=== PATIENT | male | born 1990 | race American Indian/Alaskan Native ===

== ENCOUNTER 2019-06-06 23:08 | Emergency (ER) | payer SELFPAY ==
[2019-06-07 00:28] LABS: Basophils % (Auto) 0.6 % (0.0-1.8); Eosinophils # (Auto) 0.1 K/mm3 (0.0-0.4); Eosinophils % (Auto) 1.1 % (0.0-4.3); Hematocrit 47.4 % (35.5-45.6); Hemoglobin 15.4 gm/dl (11.8-15.2); Lymphocytes # (Auto) 2.6 K/mm3 (1.2-5.4); Lymphocytes % (Auto) 40.2 % (13.4-35.0); Mean Corpuscular HGB Conc 33 % (32-34); Mean Corpuscular Volume 83 fl (84-94); Monocytes # (Auto) 0.5 K/mm3 (0.0-0.8); Monocytes % (Auto) 7.7 % (0.0-7.3); Platelet Count 204 K/mm3 (140-440); Red Blood Count 5.71 M/mm3 (3.65-5.03); Red Cell Distribution Width 13.5 % (13.2-15.2)
[2019-06-07 00:44] LABS: Alanine Aminotransferase 19 units/L (7-56); Albumin 4.7 g/dL (3.9-5); BUN/Creatinine Ratio 13; Blood Urea Nitrogen 13 mg/dL (9-20); Calcium 9.7 mg/dL (8.4-10.2); Hemolysis Index 31
[2019-06-07 01:33] LABS: Bacteria,Urine 1+ /HPF (Negative); Bilirubin,Urine NEG (Negative); Blood,Urine SM (Negative); Color,Urine Yellow (Yellow); Mucus,Urine FEW /HPF; Protein,Urine <15 mg/dL mg/dL (Negative); Urobilinogen,Urine < 2.0 mg/dL (<2.0)
--- NOTE | 2019-06-07 02:40 | Emergency Department Report ---
HPI - General Chief Complaint: GI Bleed Time Seen by Provider: 06/07/19 02:16 - HPI HPI: Room 24 The patient is 28-year-old male presenting with chief complaint of hematemesis. The patient states for the past 2 weeks is noticing elevated blood pressure has had intermittent lightheadedness as well as a right-sided headache. The patient states this evening and drank some apple cider vinegar and then developed nausea vomiting with hematemesis. He states his last bowel movement occurred this evening and was pink in color. Location: [See above] Duration: [See above] Quality: [See above] Severity: [See above] Timing: [See above] Context: [See above] Modifying factors: [See above] Associated signs and symptoms: [see above] ED Past Medical Hx - Past Medical History Previous Medical History?: No - Surgical History Past Surgical History?: No - Family History Family history: no significant - Social History Smoking Status: Current Every Day Smoker (1 pack per day) Substance Use Type: Alcohol (), Marijuana - Medications Home Medications: Home Medications Medication Instructions Recorded Confirmed Last Taken Type Butalb/Acetamin/Caff 50-325-40 2 tab PO Q8HR PRN #10 tablet 06/07/19 Unknown Rx [Fioricet 50-325-40] Famotidine [Pepcid] 20 mg PO BID #30 tablet 06/07/19 Unknown Rx ED Review of Systems ROS: Stated complaint: ABD PAIN/VOMITING BLOOD Other details as noted in HPI Constitutional: no symptoms reported Eyes: denies: eye pain ENT: denies: throat pain Respiratory: no symptoms reported Cardiovascular: denies: chest pain Endocrine: no symptoms reported Gastrointestinal: abdominal pain, nausea, vomiting, hematemesis. denies: melena Genitourinary: denies: dysuria Musculoskeletal: denies: back pain Neurological: headache Physical Exam - Physical Exam Vital Signs: Vital Signs 06/06/19 23:18 Temperature 98.2 F Pulse Rate 84 Respiratory 20 Rate Blood Pressure 137/77 [Right] O2 Sat by Pulse 98 Oximetry Physical Exam: GENERAL: The patient is well-developed well-nourished []. [] HEENT: Normocephalic. Atraumatic. Extraocular motions are intact. Patient has moist mucous membranes. NECK: Supple. Taking midline CHEST/LUNGS: Clear to auscultation. There is no respiratory distress noted. HEART/CARDIOVASCULAR: Regular. There is no tachycardia. There is no gallop rub or murmur. ABDOMEN: Abdomen is soft, with mild discomfort to palpation in the right upper quadrant. Patient has normal bowel sounds. There is no abdominal distention. SKIN: There is no rash. There is no edema. There is no diaphoresis. NEURO: The patient is awake, alert, and oriented. The patient is cooperative. The patient has no focal neurologic deficits. The patient has normal speech. Cranial nerves II through XII grossly intact, no drift MUSCULOSKELETAL: There is no evidence of acute injury. RECTAL: Guaiac negative ED Course Vital Signs 06/06/19 23:18 Temperature 98.2 F Pulse Rate 84 Respiratory 20 Rate Blood Pressure 137/77 [Right] O2 Sat by Pulse 98 Oximetry ED Medical Decision Making - Lab Data Result diagrams: 06/06/19 23:35 06/06/19 23:35 - Radiology Data Radiology results: report reviewed (CT head, CT abdomen and pelvis), image reviewed (CT head, CT abdomen and pelvis) [address] [address] Cat Scan Report Signed Patient: AURORA NAJERA MR#: [id number] : 1990 Acct:[id number] Age/Sex: 28 / M ADM Date: 06/06/19 Loc: ED Attending Dr: Ordering Physician: JOSE DAI MD Date of Service: 06/07/19 Procedure(s): CT head/brain wo con Accession Number(s): [id number] cc: JOSE DAI MD CT HEAD WITHOUT CONTRAST INDICATION: right-sided headache. TECHNIQUE: All CT scans at this location are performed using CT dose reduction for ALARA by means of automated exposure control. COMPARISON: None available. FINDINGS: HEMORRHAGE: None. EXTRA-AXIAL SPACES: Normal in size and morphology for the patient's age. VENTRICULAR SYSTEM: Normal in size and morphology for the patient's age. BRAIN PARENCHYMA: No acute findings. MIDLINE SHIFT OR HERNIATION: None. ORBITS: Normal as visualized. SOFT TISSUES OF HEAD: Normal. CALVARIUM: Normal. VISUALIZED PARANASAL SINUSES AND MASTOID AIR CELLS: Clear. ADDITIONAL FINDINGS: None. IMPRESSION: 1. No acute intracranial abnormality. Signer Name: Franko Smyth MD Signed: 06/07/2019 3:19 AM Workstation Name: [id number] Transcribed By: HELDER Dictated By: Franko Smyth MD Electronically Authenticated By: Franko Smyth MD Signed Date/Time: 06/07/19318 DD/ 6 TD/TT: [facility] [address] [place] [address] Cat Scan Report Signed Patient: AURORA NAJERA MR#: [id number] : 1990 Acct:[id number] Age/Sex: 28 / M ADM Date: 06/06/19 Loc: ED Attending Dr: Ordering Physician: JOSE DAI MD Date of Service: 06/07/19 Procedure(s): CT abdomen pelvis w con Accession Number(s): [id number] cc: JOSE DAI MD CT ABDOMEN AND PELVIS WITH IV CONTRAST INDICATION: right-sided abdominal pain, hematemesis. COMPARISON: None available. TECHNIQUE: All CT scans at this facility use dose modulation, automated exposure control, iterative reconstruction or weight based dosing, when appropriate, to reduce radiation dose to as low as reasonably achievable. FINDINGS: Lung Bases: No significant abnormality. Skeletal System: No acute abnormality. ABDOMEN: Liver: No significant abnormality. Gallbladder: No significant abnormality. Bile Ducts: No significant abnormality. Pancreas: No significant abnormality. Spleen: No significant abnormality. Adrenals: No significant abnormality. Right Kidney: No significant abnormality. Left Kidney: No significant abnormality. Upper GI tract: No bowel obstruction. No dilated loops of small bowel. Lymph Nodes: No significant adenopathy. Aorta: No significant abnormality. Additional Findings: No significant abnormality. PELVIS: Colon: No acute abnormality. Diverticulosis is noted. Urinary Bladder and Distal Ureters: No significant abnormality. Appendix: No significant abnormality. Lymph Nodes: No significant adenopathy. Additional Findings: None. IMPRESSION: 1. No acute process in the abdomen or pelvis. Signer Name: Franko Smyth MD Signed: 06/07/2019 3:37 AM Workstation Name: [id number] Transcribed By: HELDER Dictated By: Franko Smyth MD Electronically Authenticated By: Franko Smyth MD Signed Date/Time: 06/07/19 0337 DD/ 0334 TD/TT: - Differential Diagnosis gastritis, peptic ulcer disease, headache, intracranial mass, Critical care attestation.: If time is entered above; I have spent that time in minutes in the direct care of this critically ill patient, excluding procedure time. ED Disposition Clinical Impression: Headache, Vomiting, Abdominal pain Disposition: - TO HOME OR SELFCARE Is pt being admited?: No Does the pt Need Aspirin: No Condition: Stable Instructions: Acute Headache (ED) Additional Instructions: Return to the emergency department should you develop worsening symptoms, inability to tolerate food or liquids, high fever or any other concerns Prescriptions: Butalb/Acetamin/Caff 50-325-40 [Fioricet 50-325-40] 2 tab PO Q8HR PRN #10 tablet PRN Reason: Headache Famotidine [Pepcid] 20 mg PO BID #30 tablet Referrals: EUGENIA ANGELO MD [Staff Physician] - [facility] (Dr. Angelo is a primary physician. Please follow-up with him to establish as a patient.) ESHA BEJARANO MD [Staff Physician] - 3-5 Days (Dr. Bejarano is a hi lo driver. Please follow up with him for further evaluation) Forms: Accompanied Note Time of Disposition: 03:54
[2019-06-07] MEDS ORDERED: FAMOTIDINE 20 MG/2 ML INJ IV ONE (02:54)
--- NOTE | 2019-06-07 03:23 | Cat Scan Report ---
CT HEAD WITHOUT CONTRAST INDICATION: right-sided headache. TECHNIQUE: All CT scans at this location are performed using CT dose reduction for ALARA by means of automated e xposure control. COMPARISON: None available. FINDINGS: HEMORRHAGE: None. EXTRA-AXIAL SPACES: Normal in size and morphology for the patient's age. VENTRICULAR SYSTEM: Normal in size and morphology for the patient's age. BRAIN PARENCHYMA: No acute findings. MIDLINE SHIFT OR HERNIATION: None. ORBITS: Normal as visualized. SOFT TISSUES OF HEAD: Normal. CALVARIUM: Normal. VISUALIZED PARANASAL SINUSES AND MASTOID AIR CELLS: Clear. ADDITIONAL FINDINGS: None. IMPRESSION: 1. No acute intracranial abnormality. Signer Name: Franko Smyth MD Signed: 06/07/2019 3:19 AM Workstation Name: [id number]
--- NOTE | 2019-06-07 03:41 | Cat Scan Report ---
CT ABDOMEN AND PELVIS WITH IV CONTRAST INDICATION: right-sided abdominal pain, hematemesis. COMPARISON: None available. TECHNIQUE: All CT scans at this facility use dose modulation, automated exposure control, iterative reconstructi on or weight based dosing, when appropriate, to reduce radiation dose to as low as reasonably achieva ble. FINDINGS: Lung Bases: No significant abnormality. Skeletal System: No acute abnormality. ABDOMEN: Liver: No significant abnormality. Gallbladder: No significant abnormality. Bile Ducts: No significant abnormality. Pancreas: No significant abnormality. Spleen: No significant abnormality. Adrenals: No significant abnormality. Right Kidney: No significant abnormality. Left Kidney: No significant abnormality. Upper GI tract: No bowel obstruction. No dilated loops of small bowel. Lymph Nodes: No significant adenopathy. Aorta: No significant abnormality. Additional Findings: No significant abnormality. PELVIS: Colon: No acute abnormality. Diverticulosis is noted. Urinary Bladder and Distal Ureters: No significant abnormality. Appendix: No significant abnormality. Lymph Nodes: No significant adenopathy. Additional Findings: None. IMPRESSION: 1. No acute process in the abdomen or pelvis. Signer Name: Franko Smyth MD Signed: 06/07/2019 3:37 AM Workstation Name: [id number]
[2019-06-07 04:41] VITALS: BP 132/78
== END 2019-06-07 04:40 | disposition home or self-care (01) ==
LOC: ED 23:08
DX: K92.0 Hematemesis (principal); R51 Headache; F17.200 Nicotine dependence, unspecified, uncomplicated; F12.10 Cannabis abuse, uncomplicated; Z88.1 Allergy status to other antibiotic agents
CPT/HCPCS: 36415; 70450; 74177; 80048; 80053; 81001; 82271; 83690; 85025; 96374; 99284; Q9967